=== PATIENT | female | born 1970 | race Caucasian/White ===

== ENCOUNTER 2017-08-01 21:06 | Emergency (ER) | payer SELFPAY ==
[~2017-08-01] VITALS: Ht 162.6 cm; Wt 79.4 kg
[2017-08-01 21:11] VITALS: BP 137/79
--- NOTE | 2017-08-01 21:18 | NUR ---
TO LOBBY AMB, V/S STABLE , A/W FOR BED, RACHELLE NOTED
--- NOTE | 2017-08-01 23:25 | NUR ---
To bed 12.
--- NOTE | 2017-08-01 23:32 | NUR ---
47Y F BIB FAMILY C/O NUMBNESS TO THE LEFT ARM SINCE 1800 TODAY. PT DENIES ANY N/V/D, CP, BUT C/O DIFF BREATHING. PT O2SAT 99% RA, BREATHING IS UNLABORED AND CLEAR BILAT. PT AAOX4. PT AMBULATED TO ER BED WITH STEADY GAIT.
--- NOTE | 2017-08-02 01:28 | NUR ---
Patient discharged with v/s stable. Written and verbal after care instructions given and explained. Patient verbalized understanding. Ambulatory with steady gait. All questions addressed prior to discharge. Advised to follow up with PMD.
[2017-08-02 01:29] VITALS: BP 129/86
== END 2017-08-02 01:29 | disposition home or self-care (01) ==
LOC: MED 21:06
DX: F41.9 Anxiety disorder, unspecified (principal)
CPT/HCPCS: 81025; 93005; 99283

== ENCOUNTER 2023-06-18 21:54 | Inpatient (IN) | payer MEDICAID ==
[~2023-06-18] VITALS: Ht 162.6 cm; Wt 86.6 kg
[2023-06-18 21:57] VITALS: BP 126/93; PULSE 74; RESP 16; TEMP 97.4; O2SAT 95
[2023-06-18 22:50] LABS: BASOPHILS % (AUTO) 0.4 % (0.0-2.0); EOSINOPHILS # (AUTO) 0.4 K/uL (0-0.4); HEMATOCRIT 38.8 % (36-48); HEMOGLOBIN 12.9 g/dL (12.0-16.0); LYMPHOCYTES # (AUTO) 3.3 K/uL (2.5-16.5); LYMPHOCYTES % (AUTO) 32.2 % (20.5-51.1); MEAN CORPUSCULAR HEMOGLOBIN 29 pg (27-31); MEAN CORPUSCULAR HGB CONC 33 g/dL (33-37); MEAN CORPUSCULAR VOLUME 86.4 fL (80-94); MONOCYTES # (AUTO) 0.8 K/uL (0.8-1.0); MONOCYTES % (AUTO) 7.7 % (1.7-9.3); NEUTROPHILS # (AUTO) 5.6 K/uL (1.8-7.7); NEUTROPHILS % (AUTO) 55.7 % (42.2-75.2); PLATELET COUNT (AUTO) 286 K/uL (140-450); RED BLOOD CELL COUNT(AUTO) 4.49 MIL/uL (4.20-5.40); RED CELL DISTRIBUTION WIDTH 13.5 % (11.6-13.7); WHITE BLOOD COUNT (AUTO) 10.1 K/uL (4.8-10.8)
[2023-06-18 23:02] LABS: INR 0.94 (0.8-1.2); PARTIAL THROMBOPLASTIN TIME 26.6 secs (22-35.6); PROTHROMBIN TIME 9.9 secs (10.8-13.4)
[2023-06-18 23:09] LABS: ALANINE AMINOTRANSFERASE 36 U/L (12-78); ALBUMIN 3.6 g/dL (3.4-5.0); ALKALINE PHOSPHATASE 107 U/L (50-136); ANION GAP 11.9 (8-16); ASPARTATE AMINOTRANSFERASE 14 U/L (15-37); CALCIUM 8.4 mg/dL (8.5-10.1); CARBON DIOXIDE 27.5 mmol/L (21-32); CHLORIDE 107 mmol/L (98-107); CREATININE 0.8 mg/dL (0.6-1.3); GFR ARICAN-AMERICAN 96 mL/min (>90); GFR NON ARICAN-AMERICAN 79 mL/min (>90); GLUCOSE 117 mg/dL (74-106); POTASSIUM 3.4 mmol/L (3.5-5.1); SODIUM SERUM 143 mmol/L (136-145); TOTAL BILIRUBIN 0.3 mg/dL (0.0-1.0); TOTAL PROTEIN, SERUM 7.3 g/dL (6.4-8.2); UREA NITROGEN, BLOOD 14 mg/dL (7-18)
[2023-06-18 23:43] LABS: APPEARANCE,URINE CLEAR (CLEAR); BILIRUBIN,URINE NEGATIVE (NEGATIVE); BLOOD, URINE TRACE-I (NEGATIVE); COLOR,URINE YELLOW (YELLOW); LEUKOCYTE ESTERASE ,URINE 1+ (NEGATIVE); NITRITE, URINE POSITIVE (NEGATIVE); PROTEIN,URINE NEGATIVE (NEGATIVE); UGLUCOSE NEGATIVE (NEGATIVE); UROBILINOGEN,URINE 0.2 EU/dL (0.2 - 1)
[2023-06-18 23:46] LABS: WBC,URINE 20-60 /HPF (0-5)
[2023-06-18 23:47] LABS: BACTERIA,URINE >30 (MANY) /HPF (None Seen); MUCUS,URINE 1+ /LPF (None Seen); SQUAMOUS EPITHELIAL CELL,UR 0-3 (FEW) /LPF (0-3 (FEW))
[2023-06-19] MEDS ORDERED: ASPIRIN 81 MG TAB.CHEW PO ONE (02:15)
[2023-06-19] MEDS ORDERED: ZOLPIDEM 5 MG TAB PO PRN (05:45)
[2023-06-19] MEDS ORDERED: ONDANSETRON 4 MG/2 ML VIAL IM/IVP PRN (05:45)
[2023-06-19] MEDS ORDERED: DOCUSATE SODIUM 100 MG GELCAP PO PRN (05:45)
[2023-06-19] MEDS ORDERED: POTASSIUM CHLORIDE 10 MEQ TABER PO PRN (05:45)
[2023-06-19] MEDS ORDERED: HYDROcodone/APAP 7.5/325 MG 1 TAB PO PRN (05:45)
[2023-06-19] MEDS ORDERED: ACETAMINOPHEN 325 MG TAB PO PRN (05:45)
[2023-06-19] MEDS ORDERED: guaiFENesin DM 200/20 MG-10 ML 10 ML UDC PO PRN (05:45)
[2023-06-19] MEDS ORDERED: NACL 0.9% 1,000 ML IV SCH (05:45)
[2023-06-19] MEDS ORDERED: cefTRIAXone 1,000 MG VIAL ONE (06:03)
[2023-06-19 06:53] LABS: BASOPHILS % (AUTO) 0.5 % (0.0-2.0); EOSINOPHILS # (AUTO) 0.4 K/uL (0-0.4); EOSINOPHILS % (AUTO) 4.4 % (0.0-4.0); HEMATOCRIT 37.9 % (36-48); HEMOGLOBIN 12.7 g/dL (12.0-16.0); LYMPHOCYTES # (AUTO) 2.7 K/uL (2.5-16.5); LYMPHOCYTES % (AUTO) 32.3 % (20.5-51.1); MEAN CORPUSCULAR HEMOGLOBIN 29 pg (27-31); MEAN CORPUSCULAR HGB CONC 34 g/dL (33-37); MEAN CORPUSCULAR VOLUME 86.7 fL (80-94); MONOCYTES # (AUTO) 0.6 K/uL (0.8-1.0); NEUTROPHILS # (AUTO) 4.6 K/uL (1.8-7.7); NEUTROPHILS % (AUTO) 55.8 % (42.2-75.2); PLATELET COUNT (AUTO) 287 K/uL (140-450); RED BLOOD CELL COUNT(AUTO) 4.37 MIL/uL (4.20-5.40); RED CELL DISTRIBUTION WIDTH 13.4 % (11.6-13.7); WHITE BLOOD COUNT (AUTO) 8.2 K/uL (4.8-10.8)
[2023-06-19 07:33] LABS: ALBUMIN 3.2 g/dL (3.4-5.0); ANION GAP 11.7 (8-16); CALCIUM 8.3 mg/dL (8.5-10.1); CREATININE 0.7 mg/dL (0.6-1.3); POTASSIUM 3.7 mmol/L (3.5-5.1); TOTAL BILIRUBIN 0.2 mg/dL (0.0-1.0); TOTAL PROTEIN, SERUM 6.9 g/dL (6.4-8.2)
[2023-06-19 09:14] LABS: CHOL/HDL RATIO 4.3 (1-4.5); THYROID STIMULATING HORMONE 3.86 uIU/mL (0.34-3.74)
[2023-06-19] MEDS: PANTOPRAZOLE 40 MG TABEC PO SCH (09:36)
[2023-06-19] MEDS: ECOTRIN 81 MG TABEC PO SCH (09:36)
[2023-06-19] MEDS ORDERED: ATORVASTATIN 20 MG TAB PO SCH (21:00)
[2023-06-20] MEDS: ECOTRIN 81 MG TABEC PO SCH (08:24)
[2023-06-20] MEDS: PANTOPRAZOLE 40 MG TABEC PO SCH (08:24)
[2023-06-20 08:45] VITALS: PULSE 85; RESP 20; O2SAT 98
[2023-06-20 09:14] VITALS: BP 113/63; PULSE 60; RESP 18; TEMP 97.7; O2SAT 94
[2023-06-20 09:15] VITALS: PULSE 64
[2023-06-20 12:11] VITALS: BP 109/58; PULSE 60; PULSE 61; RESP 18; TEMP 97.8; O2SAT 94
[2023-06-20] MEDS ORDERED: ASPI-1856 PO (14:26)
[2023-06-20] MEDS ORDERED: ATOR20TA PO (14:26)
[2023-06-20] MEDS ORDERED: CEPH-588 PO (14:26)
[2023-06-20 14:52] VITALS: BP 109/58; PULSE 61; RESP 18; TEMP 97.8
== END 2023-06-20 15:15 | disposition home or self-care (01) | DRG 203 ==
LOC: MED 21:54 → MTU 06-19 05:46
PROVIDERS: ADMIT Student in an Organized Health Care Education/Training Program; ATTEND Student in an Organized Health Care Education/Training Program
DX: R07.89 Other chest pain (principal); K80.20 Calculus of gallbladder without cholecystitis without obstruction; N39.0 Urinary tract infection, site not specified; R47.81 Slurred speech
CPT/HCPCS: 36415; 70450; 71045; 80053; 81001; 82948; 83036; 84443; 84484; 85025; 85610; 85730; 86886; 86900; 86901; 87081; 87086; 93005; 93880; 96365; 99291; J0696; J7060; Q0092